=== PATIENT | female | born 1990 | race Caucasian/White ===

== ENCOUNTER 2024-05-20 20:51 | Emergency (ER) | payer MEDICAID, OTHER ==
[~2024-05-20] VITALS: Ht 162.6 cm; Wt 67.0 kg
[2024-05-20] MEDS: ONDANSETRON 4MG ODT PO STA (01:47)
[2024-05-20] MEDS: KETOROLAC 30MG/ML VIAL IM STA (01:47)
[2024-05-20] MEDS: MAGNESIUM/ALUMINUM HYDROXIDE/SIMETHICONE 30ML UDC PO STA (01:47)
[2024-05-20 21:08] VITALS: O2SAT 100
[2024-05-20 21:57] LABS: CHLORIDE 105 mEq/L (98-107); POTASSIUM 4.1 mEq/L (3.5-5.1); SODIUM 137 mEq/L (136-145)
[2024-05-20 21:58] LABS: CARBON DIOXIDE 26 mEq/L (21-32)
[2024-05-20 21:59] LABS: CALCIUM 8.8 mg/dL (8.7-10.4)
[2024-05-20 22:00] LABS: BASOPHILS % 0.3 % (0.0-2.0); EOSINOPHILS % 2.7 % (0.0-5.0); HEMATOCRIT. 39.1 % (36.0-48.0); HEMOGLOBIN. 12.8 g/dL (12.0-16.0); LYMPHOCYTES % 28.6 % (20.0-50.0); MEAN CORPUSCULAR HEMOGLOBIN 27.9 pg (28.0-32.0); MEAN CORPUSCULAR HGB CONC 32.9 g/dL (31.0-37.0); MEAN CORPUSCULAR VOLUME 84.9 fL (81.0-99.0); MEAN PLATELET VOLUME 10.6 fl (7.4-10.4); MONOCYTES % 5.3 % (2.0-8.0); NEUTROPHILS % 63.1 % (40.0-76.0); PLATELET 190 x1000/uL (130-400); RED CELL DISTRIBUTION WIDTH 13.5 % (11.6-14.6); WHITE BLOOD COUNT 8.2 x1000/uL (4.5-11.0)
[2024-05-20 22:03] LABS: CREATININE 0.7 mg/dL (0.6-1.0)
[2024-05-20 22:04] LABS: GLUCOSE 93 mg/dL (70-105); UREA NITROGEN BLOOD 9 mg/dL (9-23)
[2024-05-20 22:05] LABS: ALANINE AMINOTRANSFERASE 11 IU/L (10-49); ALBUMIN 4.3 g/dL (3.2-4.8); ASPARTATE AMINOTRANSFERASE 14 IU/L (<34)
[2024-05-20 22:06] LABS: BILIRUBIN DIRECT 0.2 mg/dL (<=3.0); BILIRUBIN TOTAL 0.8 mg/dL (0.1-1.0); PROTEIN TOTAL 7.2 g/dL (6.0-8.3)
[2024-05-20 22:36] LABS: HCG SCREEN NEGATIVE
[2024-05-21] MEDS ORDERED: FAMO-135 MT (00:51)
[2024-05-21 01:46] VITALS: BP 104/62; PULSE 60; RESP 17; TEMP 36.50292; O2SAT 99
[2024-05-21] MEDS: MAGNESIUM/ALUMINUM HYDROXIDE/SIMETHICONE 30ML UDC PO NR (01:46)
[2024-05-21] MEDS: DICYCLOMINE 10 MG/5 ML ORAL SYR PO STA (01:47)
[2024-05-21] MEDS: KETOROLAC 30MG/ML VIAL IM NR (01:47)
[2024-05-21] MEDS: ONDANSETRON 4MG ODT PO NR (01:47)
== END 2024-05-21 01:50 | disposition home or self-care (01) ==
LOC: ER 20:51
DX: K29.70 Gastritis, unspecified, without bleeding (principal); Z98.51 Tubal ligation status
CPT/HCPCS: 99285; 76700; 80076; 80048; 84703; 83690; 85025; 86850; 86900; 86901; 36415; 96372; Q0162; J1885